=== PATIENT | male | born 1950 | race Caucasian/White ===

== ENCOUNTER 2019-08-18 16:55 | Inpatient (IN) | payer MEDICARE, SELFPAY ==
[2019-08-18 17:07] VITALS: BP 120/85; PULSE 88; RESP 14; TEMP 36.8; O2SAT 100
[2019-08-18 18:18] LABS: Basophils Absolute Auto 0.1 K/mm3 (0.0-0.1); Basophils Percent Auto 0.5 % (0.2-1.2); Eosinophils Percent Auto 0.1 % (0-4.4); Hematocrit 31.1 % (42.0-52.0); Hemoglobin 9.8 g/dL (14.0-18.0); Immature Granulocyte Absolute 0.24 K/mm3 (0.00-0.031); Immature Granulocyte Percent A 1.7 % (0-0.5); Lymphocytes Absolute Auto 1.33 K/mm3 (0.9-3.2); Lymphocytes Percent Auto 9.5 % (18.3-44.2); Mean Corpuscular HGB Conc 31.5 g/dl (32-36); Mean Corpuscular Hemoglobin 25.1 pg (26-34); Mean Corpuscular Volume 79.5 fl (80-100); Mean Platelet Volume 11.1 fl (7.4-10.4); Monocytes Percent Auto 6.8 % (2.6-8.5); Neutrophils Absolute Auto 11.4 K/mm3 (1.3-6.7); Neutrophils Percent Auto 81.4 % (45.5-73.1); Platelet Count Result 232 k/mm3 (150-375); Red Blood Count 3.91 M/mm3 (4.6-6.20); Red Cell Distribution Width 19.6 % (11.5-14.5)
[2019-08-18 18:25] LABS: INR 1.1; Prothrombin Time 13.7 Seconds (11.1-14.7)
[2019-08-18 18:27] LABS: Alanine Aminotransferase 24 U/L (4-50); Alkaline Phosphatase 62 U/L (38-126); Aspartate Amino Transferase 27 U/L (17-59); Bilirubin,Total 0.8 mg/dL (0.2-1.3); Blood Urea Nitrogen 43 mg/dL (9-20); Calcium 8.4 mg/dL (8.4-10.2); Carbon Dioxide 24 mmol/L (22-30); Chloride 107 mmol/L (98-107); Estimated Glomerular Filt Rate 50; Glucose 107 mg/dL (75-110); Potassium 4.4 mmol/L (3.4-5.0); Sodium 140 mmol/L (137-145)
[2019-08-18 18:47] VITALS: BP 115/81; PULSE 75; RESP 15; O2SAT 98
--- NOTE | 2019-08-18 20:03 | ED.GIBLEED ---
HPI - GI Bleed General Chief complaint: GI Bleed Stated complaint: BLACK STOOLS Time Seen by Provider: 08/18/19 18:59 History of Present Illness HPI Narrative: Passing Dark tarry stools for the past 3 days. Now feeling tired and dizzy on standing. He had similar symptoms in the past due to bleeding esophageal ulcer which was stapled by Dr. Brown. No abdominal pain, fever, nausea, vomiting, syncope. Related Data Home Medications Medication Instructions Recorded Confirmed aspirin [Aspir-81] 81 mg PO DAILY 08/18/19 08/18/19 atorvastatin 40 mg PO DAILY 08/18/19 08/18/19 carvedilol 12.5 mg PO BID 08/18/19 08/18/19 clopidogrel 75 mg PO DAILY 08/18/19 08/18/19 pantoprazole 40 mg PO HS 08/18/19 08/18/19 sacubitril-valsartan [Entresto] 1 tablet PO BID 08/18/19 08/18/19 spironolactone 25 mg PO DAILY 08/18/19 08/18/19 Allergies Allergy/AdvReac Type Severity Reaction Status Date / Time cephalexin Allergy Hives Verified 08/18/19 17:15 Review of Systems Review of Systems: All systems reviewed & are unremarkable except as noted in HPI and below Constitutional: Constitutional: Denies chills, Denies fever(s) and Denies weakness ENT: Reports dizziness Cardiovascular: Cardiovascular: Denies chest pain Respiratory: Respiratory: Denies dyspnea Gastrointestinal: Gastrointestinal: Denies abdominal pain, Denies nausea and Denies vomiting Genitourinary: Genitourinary: Denies hematuria Neurologic: Denies headache(s) and Denies weakness [facility] Past Medical History Medical History Cornell esophagus (~05/2014) Colon polyps Coronary artery disease History of myocardial infarction October 2018, status post stent x2 per Dr. Conley at [facility]. Essential hypertension Hyperlipidemia Ischemic cardiomyopathy Ejection fraction as low as 30% post [place], with improved ejection fraction to 68% on more recent echocardiogram. Currently on Entresto. MRSA infection (~2014) MRSA infection following left hip replacement. Osteoarthritis Reflux esophagitis Upper GI bleed (~02/2014) Reflux esophagitis, severe erosive esophagitis, and actively bleeding vessel noted on EGD per Dr. Pugh. Surgical History Surgical History History of carpal tunnel surgery of right wrist (~08/2004) History of total left hip arthroplasty (~2014) Complicated by MRSA infection, requiring washout, and hardware removal and redo replacement. History of total right hip arthroplasty (~2013) Family History Family History Father Lung cancer Mother Heart disease Social History Social History Social History: Surrogate decision maker: Carlito Gillette, son. Code status: Full code. Smoking status: Never smoker Alcohol intake: current Drinks per week: 1 Substance use: never Additional living arrangements comments: Patient lives in his own home in [place]. 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 Gender identity (if verbalized by the patient): Male Spiritual care concerns: No Exam Const: General: healthy appearing, no acute distress and alert Nutritional Appearance: well nourished Orientation/consciousness: patient oriented x3 HENMT: Head: normal to inspection Resp: Effort & Inspection: normal respiratory effort Auscultation: clear to auscultation bilaterally Cardio: Rate: regular rate Rhythm: regular rhythm GI: GI Palp: Yes Soft to palpation and No Tenderness to palpation present (GI) Skin: General skin exam: normal color Neuro: General: patient oriented x3, moves all extremities, no focal motor deficits and CN's II-XI intact bilaterally Speech: normal speech Extrem: General: normal to inspection Course Vital Signs Vital signs: Vital
[2019-08-18 21:29] VITALS: BP 105/63; PULSE 84; RESP 16; O2SAT 100
[2019-08-18] MEDS: LACTATED RINGERS 1,000 ML 125 ML IV CONT (21:45)
[2019-08-18 22:00] VITALS: BP 114/72; PULSE 87; RESP 16; TEMP 36.3; O2SAT 100
[2019-08-18 22:04] VITALS: BMI 28.0
--- NOTE | 2019-08-18 22:15 | PM.IMHP ---
H&P: HPI History of Present Illness Chief complaint: Dark stools. Narrative: Shane Gillette is a 69-year-old male with a medical history significant for upper GI bleed in February 2014 with evidence of reflux esophagitis and severe erosive esophagitis on EGD with active bleeding vessels which were clipped, Cornell's esophagus and hiatal hernia on EGD several months thereafter, colon polyps, coronary artery disease status post post stent x2 in October [address] Conley at [facility], ischemic cardiomyopathy with ejection fraction as low as 30% post NH with a more recent ejection fraction of 68%, hypertension, and hyperlipidemia who presented to the emergency department earlier this evening for evaluation of dark stools. He reports passing 4 dark stools over the past 2 days, reminiscent of previous GI bleed, which led him to come in for evaluation. Other than that, he has no complaints. He is on both aspirin and clopidogrel since his stents in October 2018. He is on pantoprazole daily, but it sounds as though he stops taking that for around a month ?because my vp software told me I should not take it for longer than 14 months.? He resumed taking a PPI within the last month, however, due to mild heartburn. He drinks 1 cup of coffee per day. He also admits to drinking 2 NOS energy drinks a day as it helps him lift heavier weights when he is at the gym 3 times a week. He denies chest pain and shortness of breath. No lightheadedness or dizziness. He denies nausea and vomiting. Review of Systems Review of Systems: Narrative: Twelve systems were reviewed with pertinent positives and negatives as per HPI. No fever, chills, or sweats. No recent cold or flu symptoms. He denies exertional chest pain and shortness of breath. He does not take Pepto-Bismol and is not on iron supplementation. Except as documented, all other systems were reviewed and are negative. [facility] Past Medical History Medical History (Updated 08/18/19 @ 23:11 by Ning Montoya PA-C) Cornell esophagus (~05/2014) Colon polyps Coronary artery disease History of myocardial infarction October 2018, status post stent x2 per Dr. Conley at [facility]. Essential hypertension Hyperlipidemia Ischemic cardiomyopathy Ejection fraction as low as 30% post NH, with improved ejection fraction to 68% on more recent echocardiogram. Currently on Entresto. MRSA infection (~2014) MRSA infection following left hip replacement. Osteoarthritis Reflux esophagitis Upper GI bleed (~02/2014) Reflux esophagitis, severe erosive esophagitis, and actively bleeding vessel noted on EGD per Dr. Pugh. Surgical History Surgical History (Updated 08/18/19 @ 23:03 by Ning Montoya PA-C) History of carpal tunnel surgery of right wrist (~08/2004) History of total left hip arthroplasty (~2014) Complicated by MRSA infection, requiring washout, and hardware removal and redo replacement. History of total right hip arthroplasty (~2013) Family History Family History (Updated 08/18/19 @ 23:03 by Ning Montoya PA-C) Father Lung cancer Mother Heart disease Social History Social History (Updated 08/18/19 @ 23:04 by Ning Montoya PA-C) Social History: Surrogate decision maker: Carlito Gillette, kristina. Code status: Full code. Smoking status: Never smoker Alcohol intake: current Drinks per week: 1 Substance use: never Additional living arrangements comments: Patient lives in his own home in [place]. 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 Gender identity (if verbalized by the patient): Male Spiritual care concerns: No Meds Home Medications and Allergies Home Medications Medication Instructions Recorded Confirmed Type aspirin [Aspir-81] 81 mg PO DAILY 08/18/19 08/18/19 History atorvastatin 40 mg PO DAILY 08/18/19 08/18/19 History carvedilol 12.5 mg PO BID 08/18/19 08/18/19 History clopi
[2019-08-18 23:13] LABS: Hematocrit 29.9 % (42.0-52.0); Hemoglobin 9.1 g/dL (14.0-18.0)
[2019-08-19] VITALS (8 sets, daily range): BP systolic 86–108; BP diastolic 52–65; PULSE 73–83; RESP 16–22; TEMP 36.1–36.5; O2SAT 98–100; BMI 28.3
[2019-08-19 02:33] LABS: Hematocrit 24.7 % (42.0-52.0); Hemoglobin 7.6 g/dL (14.0-18.0); Mean Corpuscular HGB Conc 30.8 g/dl (32-36); Mean Corpuscular Hemoglobin 25.2 pg (26-34); Mean Corpuscular Volume 81.8 fl (80-100); Mean Platelet Volume 10.8 fl (7.4-10.4); Platelet Count Result 191 k/mm3 (150-375); Red Blood Count 3.02 M/mm3 (4.6-6.20); Red Cell Distribution Width 19.4 % (11.5-14.5); White Blood Count 9.6 K/mm3 (4.5-10.0)
[2019-08-19 02:47] LABS: Blood Urea Nitrogen 43 mg/dL (9-20); Calcium 7.9 mg/dL (8.4-10.2); Carbon Dioxide 24 mmol/L (22-30); Chloride 110 mmol/L (98-107); Estimated CRCL calculation 54 ml/min; Estimated Glomerular Filt Rate 55; Glucose 103 mg/dL (75-110); Potassium 3.8 mmol/L (3.4-5.0); Sodium 138 mmol/L (137-145)
[2019-08-19 03:35] LABS: Iron 27 ug/dL (49-181)
[2019-08-19 03:44] LABS: Percent Iron Saturation 8 % (20-50)
[2019-08-19] MEDS: LACTATED RINGERS 1,000 ML 125 ML IV CONT ×3 (05:31→21:41)
[2019-08-19] MEDS: PANTOPRAZOLE SODIUM IV 40 MG VIAL IV PUSH ×2 (05:32→09:09)
--- NOTE | 2019-08-19 05:34 | PC.NURSE ---
intake before midnoc
[2019-08-19 08:41] LABS: Hematocrit 23.9 % (42.0-52.0); Hemoglobin 7.4 g/dL (14.0-18.0)
[2019-08-19] MEDS: ATORVASTATIN 40 MG TABLET PO (09:09)
[2019-08-19] MEDS: carvediloL 12.5 MG TABLET PO ×2 (09:09→20:33)
[2019-08-19] MEDS: SACUBITRIL/VALSARTAN 24-26 MG TABLET 1 TAB PO ×2 (09:09→17:42)
[2019-08-19] MEDS: SPIRONOLACTONE 25 MG TABLET PO (09:09)
[2019-08-19] MEDS: LACTATED RINGERS 1,000 ML 150 ML IV CONT (14:47)
--- NOTE | 2019-08-19 14:53 | WPDANESEPPF ---
Anes - Initial Pre Proc Eval Procedure: Operation Date: 08/19/19 15:00 Proposed Procedures p Esophagogastroduodenoscopy - Varinder Menendez Antonellaiftikhar Date/Time: 08/19/19 14:53 Surgeon: Adrienne Marshall PA-C Pre Op Diagnosis: Dark stools. Patient Data Age: 69 Gender: M Height: 6 ft 1 in Weight: 97.6 kg Last Vital Signs Temp 36.5 C 08/19/19 05:28 Pulse 83 08/19/19 09:09 Resp 16 08/19/19 05:28 BP 108/65 08/19/19 05:28 Pulse Ox 99 08/19/19 05:28 Allergies Allergy/AdvReac Type Severity Reaction Status Date / Time cephalexin Allergy Hives Verified 08/18/19 17:15 Home Medications Medication Instructions Recorded Confirmed Type aspirin [Aspir-81] 81 mg PO DAILY 08/18/19 08/18/19 History atorvastatin 40 mg PO DAILY 08/18/19 08/18/19 History carvedilol 12.5 mg PO BID 08/18/19 08/18/19 History clopidogrel 75 mg PO DAILY 08/18/19 08/18/19 History pantoprazole 40 mg PO HS 08/18/19 08/18/19 History sacubitril-valsartan [Entresto] 1 tablet PO BID 08/18/19 08/18/19 History spironolactone 25 mg PO DAILY 08/18/19 08/18/19 History Laboratory Tests 08/18/19 08/18/19 08/18/19 18:10 18:10 18:10 WBC 14.0 K/mm3 H K/mm3 (4.5-10.0) RBC 3.91 M/mm3 L M/mm3 (4.6-6.20) Hgb 9.8 g/dL L g/dL (14.0-18.0) Hct 31.1 % L % (42.0-52.0) MCV 79.5 fl L fl (80-100) MCH 25.1 pg L pg (26-34) MCHC 31.5 g/dl L g/dl (32-36) RDW 19.6 % H % (11.5-14.5) Plt Count 232 k/mm3 k/mm3 (150-375) MPV 11.1 fl H fl (7.4-10.4) Immature Gran % (Auto) 1.7 % H % (0-0.5) Neut % (Auto) 81.4 % H % (45.5-73.1) Lymph % (Auto) 9.5 % L % (18.3-44.2) Dukes % (Auto) 6.8 % % (2.6-8.5) Eos % (Auto) 0.1 % % (0-4.4) Baso % (Auto) 0.5 % % (0.2-1.2) Lymph # (Auto) 1.33 K/mm3 K/mm3 (0.9-3.2) Dukes # (Auto) 1.0 K/mm3 H K/mm3 (0.1-0.6) Eos # (Auto) 0.0 K/mm3 K/mm3 (0-0.3) Baso # (Auto) 0.1 K/mm3 K/mm3 (0.0-0.1) Abs Immat Gran (auto) 0.24 K/mm3 H K/mm3 (0.00-0.031) Absolute Neuts (auto) 11.4 K/mm3 H K/mm3 (1.3-6.7) Absolute Nucleated RBC 0.0 K/mm3 K/mm3 (0.0-0.012) Nucleated RBC % 0.0 % % (0.0-0.2) PT INR APTT Sodium 140 mmol/L mmol/L (137-145) Potassium 4.4 mmol/L mmol/L (3.4-5.0) Chloride 107 mmol/L mmol/L (98-107) Carbon Dioxide 24 mmol/L mmol/L (22-30) BUN 43 mg/dL H mg/dL (9-20) Creatinine 1.40 mg/dL H mg/dL (0.7-1.3) Estim Creat Clear Calc Not Reportable Estimated GFR 50 L (59 - ) Glucose 107 mg/dL mg/dL (75-110) Calcium 8.4 mg/dL mg/dL (8.4-10.2) Iron TIBC % Saturation Ferritin Total Bilirubin 0.8 mg/dL mg/dL (0.2-1.3) AST 27 U/L U/L (17-59) ALT 24 U/L U/L (4-50) Alkaline Phosphatase 62 U/L U/L (38-126) Total Protein 7.0 g/dL g/dL (6.3-8.2) Albumin 4.0 g/dL g/dL (3.5-5.1) Vitamin B12 Folate Blood Type O Negative Antibody Screen Negative 08/18/19 08/18/19 08/19/19 18:11 23:07 02:27 WBC RBC Hgb 9.1 g/dL L g/dL (14.0-18.0) Hct 29.9 % L % (42.0-52.0) MCV MCH MCHC RDW Plt Count MPV Immature Gran % (Auto) Neut % (Auto) Lymph % (Auto) Dukes % (Auto) Eos % (Auto) Baso % (Auto) Lymph # (Auto) Dukes # (Auto) Eos # (Auto) Baso # (Auto) Abs Immat Gran (auto) Absolute Neuts (auto) Absolute Nuclea
--- NOTE | 2019-08-19 15:05 | WPDGICN ---
GI Consult Note Consult date/time: 08/19/19 15:05 HPI: 69-year-old white male seen in consultation at the request of the hospitalist with the patient's permission. The patient examined and chart was reviewed. Reason for consultation GI bleeding. Impression: Here we have agentleman with history of reflux disease recurrent GI bleeding. He has had 2 or 3 previous GI bleeds. This probably secondary to underlying erosive esophagitis. GERD with a history of erosive esophagitis and Cornell's esophagus. History of colon polyps. CAD/mi/ CHF. Status post angioplasty with stent placement x2. HTN. HLD. Recommendation: Follow hemoglobin hematocrit. PPI q.12 hours. EGD. Outpatient colonoscopy. History: this very pleasant gentleman is well known to myself. He has a history of recurrent GI bleeding secondary to erosive esophagitis. He has a long-term history of GERD with Cornell's esophagus. He was controlled on PPIs. He was instructed to discontinue his PPIs and began having recurrent symptoms of heartburn, abdominal burning and reflux. The patient began passing melenic stools recently. He denies any nausea, vomiting or hematemesis. Dysphagia odynophagia night. He denies any constipation, diarrhea or gross hematochezia. He has had a previous colonoscopy which revealed colon polyps. He admits he is overdue for colonoscopy. Physical examination: General: very pleasant patient in no acute distress. HEENT: Head was normocephalic sclerae is clear mouth without masses neck was supple. Heart: Rate rhythm regular without S3 or S4. Lungs: CTA. Abdomen: Soft with no guarding or rigidity. Bowel sounds were active. Neurologic: Cranial nerves 2 through 12 intact. No focal defects. No clonus. Musculoskeletal system: Revealed no joint tenderness or swelling no muscle atrophy. Extremities: Reveal no significant edema. Skin: Warm and dry with normal turgor. Mental status: intact. Patient is alert and oriented. A with thank you for allowing me to participate in the care of this was patient. Review of Systems Review of Systems: All systems reviewed & are unremarkable except as noted in HPI and below PMFSH Past Medical History Medical History Cornell esophagus (~05/2014) Barretts esophagus CHF (congestive heart failure) Colon polyps Coronary artery disease History of myocardial infarction October 2018, status post stent x2 per Dr. Conley at [facility]. Erosive esophagitis GERD (gastroesophageal reflux disease) HTN (hypertension) Hyperlipidemia Ischemic cardiomyopathy Ejection fraction as low as 30% post AR, with improved ejection fraction to 68% on more recent echocardiogram. Currently on Entresto. MRSA infection (~2014) MRSA infection following left hip replacement. Osteoarthritis Upper GI bleed (~02/2014) Reflux esophagitis, severe erosive esophagitis, and actively bleeding vessel noted on EGD per Dr. Pugh. Surgical History Surgical History H/O colonoscopy History of carpal tunnel surgery of right wrist (~08/2004) History of esophagogastroduodenoscopy (EGD) History of total left hip arthroplasty (~2014) Complicated by MRSA infection, requiring washout, and hardware removal and redo replacement. History of total right hip arthroplasty (~2013) S/P angioplasty with stent x2 Family History Family History Father Lung cancer Mother Heart disease Social History Social History Social History: Surrogate decision maker: Carlito Gillette, son. Code status: Full code. Smoking status: Never smoker Alcohol intake: current Drinks per week: 1 Substance use: never Additional living arrangements comments: Patient lives in his own home in [place]. Additional
--- NOTE | 2019-08-19 16:10 | PM.IMPN ---
Progress Note: A&P Assessment and Plan (1) Dark stools: Code(s): R19.5 - Other fecal abnormalities Status: Acute Assessment and Plan: -----Likely d/t duodenal ulcer and Cornell's. Continue PPI, start clear liquids and see how he toleratese it. Likely d/c in the AM. (2) Microcytic anemia: Code(s): D50.9 - Iron deficiency anemia, unspecified Status: Acute Assessment and Plan: -----consistent with iron deficiency anemia. Will need outpatient colonoscopy and iron (3) Reflux esophagitis: Code(s): K21.0 - Gastro-esophageal reflux disease with esophagitis Status: Acute Assessment and Plan: -----continue ppi (4) Cornell esophagus: Onset Date: ~05/2014 Code(s): K22.70 - Cornell's esophagus without dysplasia Status: Acute Assessment and Plan: -----Seen on EGD, Continue routine monitoring. (5) Coronary artery disease: Code(s): I25.10 - Atherosclerotic heart disease of [place] coronary artery without angina pectoris Status: Acute Assessment and Plan: -----With history of VT in October 2018, status post stent x2. Clopidogrel and aspirin on hold currently given upper GI bleed. Likely resume at discharge as he will need to be on the combo for 1 year since he has a cardiac stent. (6) Ischemic cardiomyopathy: Code(s): I25.5 - Ischemic cardiomyopathy Status: Acute Assessment and Plan: -----Ejection fraction as low as 30%, but reportedly a recent echocardiogram demonstrated an EF of 68%. Recent appointment with steel welder was uneventful, patient to continue taking Entresto. (7) Essential hypertension: Code(s): I10 - Essential (primary) hypertension Status: Acute Assessment and Plan: -----last bp 95/67 after procedure. Continue IVF. (8) Elevated serum creatinine: Code(s): R79.89 - Other specified abnormal findings of blood chemistry Status: Acute Assessment and Plan: -----Likely baseline, Cr 1.3 today. (9) Esophageal ulcer: Code(s): K22.10 - Ulcer of esophagus without bleeding Status: Acute Assessment and Plan: -----Seen on EGD. Continue PPI. Time Spent With Patient Time with patient: 25 - 35 minutes Subjective Date/time seen: 08/19/19 16:10 Interval history: Pt is a 69 y/o male here for GERD, melena, and has a hx of gastric ulcer seen today. He has no pain today and feels great. Pt denies nausea, vomiting, fevers, chills, constipation, diarrhea, chest pain, sob, or abdominal pain. Review of Systems Review of Systems: All systems reviewed & are unremarkable except as noted in HPI and below Exam Narrative: Exam Narrative: General: Well developed well nourished patient resting in bed in NAD HEENT: normocephalic Neck: supple Neuro: Alert and oriented x4 CV:RRR Resp:CTA Abd: Soft, non distended. No pain to palpation. Positive bowel sounds Extremities: No swelling, erythema, or pain to palpation. Objective Data Vital Signs Vital Signs: Vital Signs - 24 hr 08/18/19 17:07 08/18/19 18:47 08/18/19 21:29 Temperature 98.3 F Pulse Rate 88 75 84 Respiratory Rate 14 15 16 Blood Pressure 120/85 115/81 105/63 Pulse Oximetry 100 98 100 08/18/19 22:00 08/19/19 05:28 08/19/19 09:09 Temperature 97.3 F L 97.7 F Pulse Rate 87 83 83 Respiratory Rate 16 16 Blood Pressure 114/72 108/65 Pulse Oximetry 100 99 08/19/19 15:27 08/19/19 15:37 08/19/19 15:47 Temperature Pulse Rate 74 73 73 Respiratory Rate 20 22 H 20 Blood Pressure 91/54 L 86/52 L 95/56 L Pulse Oximetry 98 99 100 Intake/Output Intake/Output: Intake & Output 08/16/19 08/17/19 08/18/19 08/19/19 23:59 23:59 23:59 23:59 Intake Total 2222 Output Total 1050 Balance 1172 Meds/Results Medications: Active Medications Generic Name Dose Route Start Last Admin Trade Name Freq PRN Reason Stop Dose
[2019-08-19 17:10] LABS: Hematocrit 24.5 % (42.0-52.0); Hemoglobin 7.6 g/dL (14.0-18.0); Mean Corpuscular Hemoglobin 25.2 pg (26-34); Mean Corpuscular Volume 81.4 fl (80-100); Mean Platelet Volume 11.1 fl (7.4-10.4); Platelet Count Result 206 k/mm3 (150-375); Red Blood Count 3.01 M/mm3 (4.6-6.20); Red Cell Distribution Width 19.8 % (11.5-14.5); White Blood Count 6.9 K/mm3 (4.5-10.0)
[2019-08-19 17:27] LABS: Alanine Aminotransferase 21 U/L (4-50); Albumin Level 3.2 g/dL (3.5-5.1); Alkaline Phosphatase 52 U/L (38-126); Aspartate Amino Transferase 22 U/L (17-59); Bilirubin,Total 0.5 mg/dL (0.2-1.3); Blood Urea Nitrogen 25 mg/dL (9-20); Calcium 7.7 mg/dL (8.4-10.2); Carbon Dioxide 25 mmol/L (22-30); Chloride 108 mmol/L (98-107); Cholesterol 83 mg/dL (0-200); Estimated CRCL calculation 64 ml/min; Estimated Glomerular Filt Rate > 60; Glucose 93 mg/dL (75-110); HDL Direct 26 mg/dL; Magnesium 2.1 mg/dL (1.6-2.3); Phosphorus 2.6 mg/dL (2.5-4.5); Potassium 3.8 mmol/L (3.4-5.0); Sodium 137 mmol/L (137-145); Triglycerides 92 mg/dL (<150)
[2019-08-19 17:35] LABS: LDL Cholesterol Direct 42 mg/dL
[2019-08-19 17:40] LABS: T4 Thyroxine 9.98 ug/dL (5.53-11.0)
[2019-08-19 18:00] LABS: Free T4 Free Thyroxine 1.27 ng/mL (0.78-2.19)
[2019-08-19] MEDS: PANTOPRAZOLE 40 MG TABLET PO (20:34)
[2019-08-20] VITALS (8 sets, daily range): BP systolic 86–119; BP diastolic 47–68; PULSE 76–82; RESP 14–18; TEMP 35.8–36.2; O2SAT 98–100
[2019-08-20 06:42] LABS: Hematocrit 23.2 % (42.0-52.0)
[2019-08-20 06:55] LABS: Blood Urea Nitrogen 16 mg/dL (9-20); Calcium 7.2 mg/dL (8.4-10.2); Carbon Dioxide 26 mmol/L (22-30); Chloride 104 mmol/L (98-107); Estimated CRCL calculation 70 ml/min; Estimated Glomerular Filt Rate > 60; Glucose 108 mg/dL (75-110); Potassium 3.6 mmol/L (3.4-5.0); Sodium 132 mmol/L (137-145)
[2019-08-20] MEDS: ATORVASTATIN 40 MG TABLET PO (08:27)
[2019-08-20] MEDS: SPIRONOLACTONE 25 MG TABLET PO (08:34)
[2019-08-20] MEDS: PANTOPRAZOLE 40 MG TABLET PO (08:34)
[2019-08-20] MEDS: SACUBITRIL/VALSARTAN 24-26 MG TABLET 1 TAB PO (08:34)
[2019-08-20] MEDS: carvediloL 12.5 MG TABLET PO (08:35)
--- NOTE | 2019-08-20 10:18 | PM.DS ---
DS: Admitting Diagnosis Admitting Diagnosis Admitting Diagnosis: Other fecal abnormalities DS: Discharge Diagnosis Discharge Diagnosis (1) Dark stools: Code(s): R19.5 - Other fecal abnormalities Status: Acute Assessment and Plan: -----Likely d/t esophageal ulcer and Cornell's esophagus. (2) Microcytic anemia: Code(s): D50.9 - Iron deficiency anemia, unspecified Status: Acute Assessment and Plan: likely d/t blood loss and iron deficiency. Placed on iron at discharge. (3) Reflux esophagitis: Code(s): K21.0 - Gastro-esophageal reflux disease with esophagitis Status: Acute (4) Cornell esophagus: Onset Date: ~05/2014 Code(s): K22.70 - Cornell's esophagus without dysplasia Status: Acute Assessment and Plan: -----Seen on EGD, Continue routine monitoring. (5) Coronary artery disease: Code(s): I25.10 - Atherosclerotic heart disease of [place] coronary artery without angina pectoris Status: Acute (6) Ischemic cardiomyopathy: Code(s): I25.5 - Ischemic cardiomyopathy Status: Acute (7) Essential hypertension: Code(s): I10 - Essential (primary) hypertension Status: Acute Assessment and Plan: -----last bp 95/67 after procedure. Continue IVF. (8) Elevated serum creatinine: Code(s): R79.89 - Other specified abnormal findings of blood chemistry Status: Acute Assessment and Plan: -----Likely baseline, Cr 1.3 today. (9) Esophageal ulcer: Code(s): K22.10 - Ulcer of esophagus without bleeding Status: Acute Assessment and Plan: -----Seen on EGD. Continue PPI. DS: Summary Hospital Course Reason for hospitalization: Anemia, dark stools Hospital Course: Patient is a 69-year-old male with a past medical history of Cornell's esophagus with gastric ulcers who presented emergency room for dark tarry stools and dizziness. Vitals in the ER were normal. Hemoglobin originally 9.8, hematocrit 24.7. BMP showed elevated BUN at 43. His stool Hemoccult test was positive. Patient was admitted to the hospitalist service and his hemoglobin dropped down to 7.0 and he was transfuse 1 unit. After that, he had no issues with dizziness or chest pain. The patient underwent an EGD which showed esophageal ulcer and Cornell's esophagus. I believe they are planning to a colonoscopy outpatient. The day of discharge the patient felt great and ready to go. He had no complaints of chest pain. He was instructed to restart his Plavix 7 days after his EGD. He was educated about the worrisome signs and symptoms come back to emergency room for and discharged in stable condition Status at Discharge Functional status at discharge: independent ambulation Overall status at discharge: patient is back to baseline Time Spent with Patient Time attestation: Total time spent providing and/or coordinating discharge services:32 min Time spent: Greater than 30 minutes Exam Narrative: Exam Narrative: General: Well developed well nourished patient resting in bed in NAD HEENT: normocephalic Neck: supple Neuro: Alert and oriented x4 CV:RRR Resp:CTA Abd: Soft, non distended. No pain to palpation. Positive bowel sounds Extremities: No swelling, erythema, or pain to palpation. DS: Data Data Completed and Pending Pending studies at discharge: Pending at discharge 08/19/19 15:28 Surgical [PTH] Routine Labs on day of discharge: Labs from last 24 hours 08/20/19 08/20/19 08/19/19 06:28 06:28 16:54 WBC RBC Hgb 7.0 L Hct 23.2 L MCV MCH MCHC RDW Plt Count MPV Sodium 132 L 137 Potassium 3.6 3.8 Chloride 104 108 H Carbon Dioxide 26 25 BUN 16 25 H D Creatinine 1.00 1.10 Estim Creat Clear Calc 70 64 Estimated GFR > 60 > 60 Glucose 108 93 Calcium 7.2 L 7.7 L Phosphorus 2.6 Magnesium 2.1 Total Bilirubin 0
--- NOTE | 2019-08-20 10:55 | WPDANESPN ---
Anes - Prog Note Post-Op Date/Time: 08/20/19 10:55 Cardiovascular status: normal Respiratory status: normal Airway patency: baseline Mental status: baseline Post-Op hydration status: normal Vital Signs: Last Vital Signs Temp 36.2 C L 08/20/19 06:00 Pulse 80 08/20/19 08:35 Resp 18 08/20/19 06:00 BP 97/56 L 08/20/19 06:00 Pulse Ox 99 08/20/19 06:00 I/O: Intake & Output 08/19/19 08/20/19 08/20/19 23:59 07:59 15:59 Intake Total 1560 350 240 Output Total 525 1050 Balance 1035 -700 240 Laboratory Tests 08/20/19 06:28 08/20/19 06:28 08/18/19 08/19/19 08/19/19 18:10 16:53 16:53 WBC 6.9 RBC 3.01 L Hgb Cancelled 7.6 L Hct Cancelled 24.5 L MCV 81.4 MCH 25.2 L MCHC 31.0 L RDW 19.8 H Plt Count 206 MPV 11.1 H Sodium Potassium Chloride Carbon Dioxide BUN Creatinine Estim Creat Clear Calc Estimated GFR Glucose Calcium Phosphorus Magnesium Total Bilirubin Direct Bilirubin AST ALT Alkaline Phosphatase Total Protein Albumin Triglycerides Cholesterol LDL Cholesterol Direct HDL Direct TSH Free T4 Thyroxine (T4) Crossmatch See Detail 08/19/19 08/19/19 08/20/19 16:53 16:54 06:28 WBC RBC Hgb 7.0 L Hct 23.2 L MCV MCH MCHC RDW Plt Count MPV Sodium 137 Potassium 3.8 Chloride 108 H Carbon Dioxide 25 BUN 25 H D Creatinine 1.10 Estim Creat Clear Calc 64 Estimated GFR > 60 Glucose 93 Calcium 7.7 L Phosphorus 2.6 Magnesium 2.1 Total Bilirubin 0.5 Direct Bilirubin 0.0 AST 22 ALT 21 Alkaline Phosphatase 52 Total Protein 6.0 L Albumin 3.2 L Triglycerides 92 Cholesterol 83 LDL Cholesterol Direct 42 HDL Direct 26 TSH 2.880 Free T4 1.27 Thyroxine (T4) 9.98 Crossmatch 08/20/19 06:28 WBC RBC Hgb Hct MCV MCH MCHC RDW Plt Count MPV Sodium 132 L Potassium 3.6 Chloride 104 Carbon Dioxide 26 BUN 16 Creatinine 1.00 Estim Creat Clear Calc 70 Estimated GFR > 60 Glucose 108 Calcium 7.2 L Phosphorus Magnesium Total Bilirubin Direct Bilirubin AST ALT Alkaline Phosphatase Total Protein Albumin Triglycerides Cholesterol LDL Cholesterol Direct HDL Direct TSH Free T4 Thyroxine (T4) Crossmatch Post-procedural complaints: none Patient Feedback: Patient satisfied with anesthetic care.
[2019-08-20 12:00] LABS: Immunochemical Fecal Occult Bl Positive (N)
[2019-08-20 12:09] LABS: IFOB Positive Control Positive
[2019-08-20] MEDS: SODIUM CHLORIDE 0.9% IV 250 ML 30 ML IV CONT (16:54)
[2019-08-20] MEDS: LACTATED RINGERS 1,000 ML 125 ML IV CONT (16:55)
== END 2019-08-20 17:04 | disposition home or self-care (01) | DRG 381 ==
LOC: ANHED 20:30 → ANH3MED 21:03
PROVIDERS: General Practice; Internal Medicine Gastroenterology; Physician Assistant; Admitting Provider Internal Medicine; Emergency Provider Emergency Medicine; PCP Family Medicine Sports Medicine; Visit Provider Family Medicine
PROC: 0DJ08ZZ Inspection of Upper Intestinal Tract, Via Natural or Artificial Opening Endoscopic (ICD-10-PCS; CPT 43235; principal; 2019-08-19 15:00)
DX: K22.11 Ulcer of esophagus with bleeding (principal); D62 Acute posthemorrhagic anemia; K21.0 Gastro-esophageal reflux disease with esophagitis; K44.9 Diaphragmatic hernia without obstruction or gangrene; K31.7 Polyp of stomach and duodenum; I11.0 Hypertensive heart disease with heart failure; I50.9 Heart failure, unspecified; I25.10 Atherosclerotic heart disease of native coronary artery without angina pectoris; E78.5 Hyperlipidemia, unspecified; M19.90 Unspecified osteoarthritis, unspecified site; I25.5 Ischemic cardiomyopathy; Z96.643 Presence of artificial hip joint, bilateral; I25.2 Old myocardial infarction; Z95.5 Presence of coronary angioplasty implant and graft
CPT/HCPCS: 36415; 36430; 80048; 80053; 80061; 80076; 82274; 82607; 82728; 82746; 83540; 83550; 83735; 84100; 84436; 84439; 84443; 85014; 85018; 85025; 85027; 85610; 85730; 86850; 86900; 86901; 86920; 87081; 88305; 99285; A9270; C9113; J2704; J7050; J7120; P9016

== ENCOUNTER 2019-10-18 01:08 | Outpatient (CLI) | payer MEDICARE, SELFPAY ==
[2019-10-18 18:36] LABS: SARS-CoV-2 RNA PCR Negative
== END 2019-10-18 01:09 | disposition home or self-care (01) ==
LOC: ANHCOVIDDT 01:08
PROVIDERS: PCP Family Medicine Sports Medicine; Visit Provider Internal Medicine Gastroenterology
DX: Z01.812 Encounter for preprocedural laboratory examination (principal); Z11.59 Encounter for screening for other viral diseases
CPT/HCPCS: 87635; C9803; U0003

== ENCOUNTER 2019-10-20 01:18 | Day surgery (SDC) | payer MEDICARE, SELFPAY ==
[2019-10-14 10:13] VITALS: BMI 29.0
[2019-10-20 09:45] VITALS: BP 111/67; PULSE 64; RESP 18; TEMP 36.2; O2SAT 100
--- NOTE | 2019-10-20 10:00 | WPDANESEPPF ---
Anes - Initial Pre Proc Eval Procedure: Operation Date: 10/20/19 10:00 Proposed Procedures p Screening Colonoscopy - Varinder Pugh DO Date/Time: 10/20/19 10:00 Surgeon: Varinder Pugh DO Pre Op Diagnosis: Neoplasm Screening Patient Data Age: 69 Gender: M Height: 6 ft 1 in Weight: 94.9 kg Last Vital Signs Temp 36.2 C L 10/20/19 09:45 Pulse 64 10/20/19 09:45 Resp 18 10/20/19 09:45 BP 111/67 10/20/19 09:45 Pulse Ox 100 10/20/19 09:45 Allergies Allergy/AdvReac Type Severity Reaction Status Date / Time cephalexin Allergy Hives Verified 10/20/19 09:40 Home Medications Medication Instructions Recorded Confirmed Type Entresto 1 tablet PO BID 08/18/19 10/20/19 History aspirin [Aspir-81] 81 mg PO DAILY 08/18/19 10/20/19 History atorvastatin 40 mg PO DAILY 08/18/19 10/20/19 History carvedilol 12.5 mg PO BID 08/18/19 10/20/19 History clopidogrel 75 mg PO DAILY 08/18/19 10/20/19 History spironolactone 25 mg PO DAILY 08/18/19 10/20/19 History ferrous sulfate 324 mg PO DAILY #30 tablet 08/20/19 10/20/19 Rx pantoprazole 40 mg PO BID 30 Days #60 tablet 08/20/19 10/20/19 Rx Patient hx anesthesia problems: none Family hx anesthesia problems: none PMFSH Past Medical History Medical History Cornell esophagus (~05/2014) Barretts esophagus CHF (congestive heart failure) Colon polyps Coronary artery disease History of myocardial infarction October 2018, status post stent x2 per Dr. Conley at [facility]. Erosive esophagitis GERD (gastroesophageal reflux disease) HTN (hypertension) Hyperlipidemia Ischemic cardiomyopathy Ejection fraction as low as 30% post ME, with improved ejection fraction to 68% on more recent echocardiogram. Currently on Entresto. MRSA infection (~2014) MRSA infection following left hip replacement. Osteoarthritis Upper GI bleed (~02/2014) Reflux esophagitis, severe erosive esophagitis, and actively bleeding vessel noted on EGD per Dr. Pugh. Surgical History Surgical History H/O colonoscopy History of carpal tunnel surgery of right wrist (~08/2004) History of esophagogastroduodenoscopy (EGD) History of total left hip arthroplasty (~2014) Complicated by MRSA infection, requiring washout, and hardware removal and redo replacement. History of total right hip arthroplasty (~2013) S/P angioplasty with stent x2 Family History Family History Father Lung cancer Mother Heart disease Social History Social History Social History: Surrogate decision maker: Carlito Gillette, kristina. Code status: Full code. Smoking status: Never smoker Alcohol intake: current Drinks per week: 1 Substance use: never Additional living arrangements comments: Patient lives in his own home in [place]. 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 Gender identity (if verbalized by the patient): Male Spiritual care concerns: No Anes - Eval Final PreProcedure Day of Procedure 10/20/19 10:00 Patient weight: overweight Heart: regular rate and rhythm Lungs: clear to auscultation Airway: Mallampati scale class II Neurological: alert and oriented Last oral intake: >/= 8 hours ASA classification: III Emergent: no Anesthetic plan: proceed Anesthesia type and monitoring: general GIVS and standard monitoring Informed Consent: The patient's anesthetic plan and its attendant risks and benefits were discussed with the patient/family/POA. Questions were solicited and answers provided to the satisfaction of the patient/family/POA.
[2019-10-20] MEDS: LACTATED RINGERS 1,000 ML 150 ML IV CONT (10:01)
[2019-10-20] MEDS: SIMETHICONE ORAL SUSPENSION 20 MG/0.3 ML 30 ML BOTTLE 0.6 ML IRRIGATION (10:48)
[2019-10-20 10:58] VITALS: BP 86/54; PULSE 62; RESP 18; O2SAT 98
[2019-10-20 11:08] VITALS: BP 90/54; PULSE 65; RESP 18; O2SAT 98
[2019-10-20 11:48] VITALS: BP 97/63; PULSE 68; RESP 18; O2SAT 100
--- NOTE | 2019-11-17 08:13 | PM.IMHP ---
H&P: HPI History of Present Illness Date/Time: 11/17/19 08:13 Chief complaint: Neoplasm Screening Narrative: Reason for visit is colonoscopy. Impression: Patient was here for screening colonoscopy. Per past medical history. Recommendation: Colonoscopy. Physical examination: This exam was done strictly and memory. The consultation was dictated a later date. Physical examination: General: very pleasant patient in no acute distress. HEENT: Head was normocephalic sclerae is clear mouth without masses neck was supple. Heart: Rate rhythm regular without S3 or S4. Lungs: CTA. Abdomen: Soft with no guarding or rigidity. Bowel sounds were active. Neurologic: Cranial nerves 2 through 12 intact. No focal defects. No clonus. Musculoskeletal system: Revealed no joint tenderness or swelling no muscle atrophy. Extremities: Reveal no significant edema. Skin: Warm and dry with normal turgor. Mental status: intact. Patient is alert and oriented. Review of Systems Review of Systems: All systems reviewed & are unremarkable except as noted in HPI and below PMFSH Past Medical History Medical History Cornell esophagus (~05/2014) Barretts esophagus CHF (congestive heart failure) Colon polyps Coronary artery disease History of myocardial infarction October 2018, status post stent x2 per Dr. Conley at [facility]. Erosive esophagitis GERD (gastroesophageal reflux disease) HTN (hypertension) Hyperlipidemia Ischemic cardiomyopathy Ejection fraction as low as 30% post MT, with improved ejection fraction to 68% on more recent echocardiogram. Currently on Entresto. MRSA infection (~2014) MRSA infection following left hip replacement. Osteoarthritis Upper GI bleed (~02/2014) Reflux esophagitis, severe erosive esophagitis, and actively bleeding vessel noted on EGD per Dr. Pugh. Surgical History Surgical History H/O colonoscopy History of carpal tunnel surgery of right wrist (~08/2004) History of esophagogastroduodenoscopy (EGD) History of total left hip arthroplasty (~2014) Complicated by MRSA infection, requiring washout, and hardware removal and redo replacement. History of total right hip arthroplasty (~2013) S/P angioplasty with stent x2 Family History Family History Father Lung cancer Mother Heart disease Social History Social History Social History: Surrogate decision maker: Carlito Gillette, son. Code status: Full code. Smoking status: Never smoker Alcohol intake: current Drinks per week: 1 Substance use: never Additional living arrangements comments: Patient lives in his own home in [place]. 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. Gender identity (if verbalized by the patient): Male Spiritual care concerns: No Meds Home Medications and Allergies Home Medications Medication Instructions Recorded Confirmed Type Entresto 1 tablet PO BID 08/18/19 10/20/19 History aspirin [Aspir-81] 81 mg PO DAILY 08/18/19 10/20/19 History atorvastatin 40 mg PO DAILY 08/18/19 10/20/19 History carvedilol 12.5 mg PO BID 08/18/19 10/20/19 History clopidogrel 75 mg PO DAILY 08/18/19 10/20/19 History spironolactone 25 mg PO DAILY 08/18/19 10/20/19 History ferrous sulfate 324 mg PO DAILY #30 tablet 08/20/19 10/20/19 Rx pantoprazole 40 mg PO BID 30 Days #60 tablet 08/20/19 10/20/19 Rx Allergies Allergy/AdvReac Type Severity Reaction Status Date / Time cephalexin Allergy Hives Verified 10/20/19 09:40
== END 2019-10-20 11:40 | disposition home or self-care (01) ==
PROVIDERS: PCP Family Medicine Sports Medicine; Visit Provider Internal Medicine Gastroenterology
PROC: 0DJD8ZZ Inspection of Lower Intestinal Tract, Via Natural or Artificial Opening Endoscopic (ICD-10-PCS; CPT 45378; principal; 2019-10-20 10:00)
DX: Z12.11 Encounter for screening for malignant neoplasm of colon (principal); K64.8 Other hemorrhoids; Z86.010 Personal history of colon polyps; I11.0 Hypertensive heart disease with heart failure; I50.9 Heart failure, unspecified; I25.2 Old myocardial infarction; I25.10 Atherosclerotic heart disease of native coronary artery without angina pectoris; K21.9 Gastro-esophageal reflux disease without esophagitis; E78.5 Hyperlipidemia, unspecified; I25.5 Ischemic cardiomyopathy; Z79.02 Long term (current) use of antithrombotics/antiplatelets; Z79.82 Long term (current) use of aspirin
CPT/HCPCS: G0105; J2001; J2704; J7120